=== PATIENT | male | born 1980 | race Caucasian/White ===

== ENCOUNTER 2017-05-31 14:25 | Emergency (ER) | payer MEDICAID ==
[2017-05-31 15:15] LABS: % IMMATURE GRANULYOCYTES 0.2 % (0.0-1.1); ABSOLUTE IMMATURE GRANULOCYTES 0.02 10^3/uL (0.00-0.10); ADD DIFF? NO; ADD MORPH? NO; ADD SCAN? NO; ATYPICAL LYMPHOCYTE FLAG 0 (0-99); FRAGMENT RBC FLAG 0 (0-99); HEMATOCRIT 38.4 % (40.0-51.0); HEMOGLOBIN 13.9 g/dL (13.7-17.5); LEFT SHIFT FLG 0 (0-99); LIPEMIA HEMOLYSIS FLAG 90 (0-99); MEAN CELL HEMOGLOBIN 31.6 pg (27.9-34.1); MEAN CELL HEMOGLOBIN CONCENTR. 36.2 g/dL (32.4-36.7); MEAN CELL VOLUME 87.3 fL (81.5-99.8); MEAN PLATELET VOLUME 11.3 fL (8.7-11.7); PLATELET CLUMPS FLAG 0 (0-99); PLATELET COUNT 200 10^3/uL (150-400); RED CELL DISTRIBUTION WIDTH 12.2 % (11.5-15.2)
[2017-05-31 15:32] LABS: ALANINE AMINOTRANSFERASE 40 IU/L (21-72); ALKALINE PHOSPHATASE 65 IU/L (38-126); ANION GAP 9 mEq/L (8-16); ASPARTATE AMINOTRANSFERASE 52 IU/L (17-59); CALCIUM 9.5 mg/dL (8.5-10.4); CARBON DIOXIDE 26 mEq/l (22-31); CHLORIDE 107 mEq/L (97-110); CREATININE 0.9 mg/dL (0.7-1.3); ETHANOL SERUM < 10 mg/dL (0-10); GLOMERULAR FILTRATION RATE > 60; GLUCOSE 90 mg/dL (70-100); POTASSIUM 3.2 mEq/L (3.5-5.2); SODIUM 142 mEq/L (134-144); TOTAL PROTEIN 6.8 g/dL (6.3-8.2)
--- NOTE | 2017-05-31 15:37 | EDPHY ---
H & P Stated Complaint: M1 hold by [facility] - Medical/Surgical History Hx Asthma: No Hx Chronic Respiratory Disease: No Hx Diabetes: No Hx Cardiac Disease: No Hx Renal Disease: No Hx Cirrhosis: No Hx Alcoholism: No Hx HIV/AIDS: No Hx Splenectomy or Spleen Trauma: No Other PMH: bipolar/depression - Social History Smoking Status: Current every day smoker Time Seen by Provider: 05/31/17 14:56 HPI/ROS: Chief complaint: Mental health hold History of present illness: This is a 36-year-old male brought to the emergency department by the police on a mental health hold. Apparently patient was found wandering the street talking incoherently. He was placed on a mental health hold as it was thought he was gravely disabled. On my evaluation he states he feels fine. He denies suicidal or homicidal ideation. He denies illness or injury. However, on further discussion with him he does appear to be talking strangely stating evil is coming from his veins and body. Review of systems: 10 point review of systems was obtained and other than described above was negative (Pedrito Alanis) - Physical Exam Exam: General Appearance: Alert, nontoxic. Eyes: Pupils equal and round no pallor or injection. ENT, Mouth: Mucous membranes moist. Respiratory: There are no retractions, lungs are clear to auscultation. Cardiovascular: Regular rate and rhythm. Gastrointestinal: Abdomen is soft and non tender, no masses, bowel sounds normal. Neurological: Alert. Strength and sensation intact and symmetrical. Skin: Warm and dry, no rashes. Musculoskeletal: Neck is supple non tender. Extremities are symmetrical, full range of motion. Psychiatric: Patient is oriented X 3, there is no agitation. (Pedrito Alanis) Constitutional: Initial Vital Signs Temperature (C) 37.2 C 05/31/17 14:41 Heart Rate 110 H 05/31/17 14:41 Respiratory Rate 18 05/31/17 14:41 Blood Pressure 142/96 H 05/31/17 14:41 O2 Sat (%) 95 05/31/17 14:41 O2 Delivery Mode Room Air Allergies/Adverse Reactions: No Known Allergies Allergy (Verified 05/31/17 14:40) Home Medications: Medication Instructions Recorded Hydrocodone Bit/Acetaminophen 1 tab PO Q4-6PRN PRN #20 tab 03/22/11 [LORTAB5/325] NO HOME MEDICATIONS 03/22/11 Depakote 05/31/17 Seroquel 05/31/17 Medical Decision Making ED Course/Re-evaluation: Patient seen under the supervision of my secondary supervising physician Dr. Ana Nash. Patient presents to the emergency department on a mental health hold. He is medically evaluated and cleared for psychiatric evaluation. This is pending at time of dictation. He is turned over to Dr. Colton Metcalf at end of shift. (Pedrito Alanis) Differential Diagnosis: Included but not limited to polysubstance abuse, depression, bipolar, schizophrenia (Pedrito Alanis) Other Provider: Assumed care of the patient at 5:00 p.m. pending psychiatric disposition. Patient has remained stable on my shift. The patient will be turned over to Dr. Gonsales at 11:00 p.m. pending psychiatric evaluation. (Colton Metcalf) 6:30 a.m.- The patient is stable. He is currently being evaluated by the mental health team. I anticipate the case will be signed out at 7:00 a.m. to the oncoming provider Dr. Romero pending final mental health evaluation. (Angela Gonsales) - Data Points Laboratory Results: Laboratory Results 05/31/17 15:02 05/31/17 15:02 Medications Given: Discontinued Medications Nicotine (Nicoderm Cq) 21 mg TD EDNOW ONE Stop: 06/01/17 00:40 Last Admin: 06/01/17 00:45 Dose: 21 mg Departure - Departure Disposition: Home, Routine, Self-Care Clinical Impression: Acute psychosis Condition: Good Instructions: Additional Information Additional Instructions: Follow-up with mental health resources provided to you. Follow-up with your mental health provider as directed. Return to the ED for thoughts of self-harm , racing thoughts or other concerns. Referrals: NONE *PRIMARY CARE P,. [Primary Care Provider] - As per Instructions
[2017-06-01] MEDS ORDERED: NICOTINE 21 MG/24 HR PATCH TD ONE ×2 (00:39→00:40)
[2017-06-01 07:54] VITALS: BP 149/98; PULSE 78; RESP 18; TEMP 98.4; O2SAT 97
== END 2017-06-01 09:46 | disposition home or self-care (01) ==
DX: F29 Unspecified psychosis not due to a substance or known physiological condition (principal); F17.200 Nicotine dependence, unspecified, uncomplicated
CPT/HCPCS: 80305; G0480

== ENCOUNTER 2017-07-15 19:54 | Emergency (ER) | payer MEDICAID ==
[2017-07-15] MEDS ORDERED: diphenhydrAMINE 25 MG CAP PO ONE (19:57)
[2017-07-15 20:00] VITALS: BP 145/98; PULSE 100; RESP 18; TEMP 98.1; O2SAT 96
--- NOTE | 2017-07-15 20:01 | EDPHY ---
H & P HPI/ROS: HPI CHIEF COMPLAINT: Reaction to Risperdal. HISTORY OF PRESENT ILLNESS: This patient 36-year-old male, presents emergency room by EMS for possible reaction to Risperdal. Patient reports he took a dose of Risperdal yesterday by accident. He has bipolar disorder. He is allergic to antipsychotics. He states that he feels that his tongue is stuck in a position. On exam however he is mentating appropriately oropharynx is unremarkable. Able to move his tongue. Speaking coherently. Admits to alcohol yesterday. No alcohol this evening. He is requesting Benadryl. Refusing IV. Denies any other complaints. Denies chest pain shortness of breath fever abdominal pain nausea vomiting. Patient is specifically requesting 50 mg p.o. Benadryl. Past Medical History: Bipolar disorder Past Surgical History: No recent surgery Social History: Homeless, smokes tobacco, occasional alcohol use, denies other illicit drugs. Allergic to antipsychotics. Family History: Noncontributory ROS REVIEW OF SYSTEMS: A comprehensive 10 point review of systems is otherwise negative aside from elements mentioned in the history of present illness. Exam Constitutional appears well nontoxic no acute distress, triage nursing summary reviewed, vital signs reviewed, awake/alert. Eyes normal conjunctivae and sclera, EOMI, PERRLA. HENT oropharynx is normal. Tongue full range of motion. No swelling. Uvula midline. Speaking clearly, no drooling, no stridor, normal inspection, atraumatic, moist mucus membranes, no epistaxis, neck supple/ no meningismus, no raccoon eyes. Respiratory clear to auscultation bilaterally, normal breath sounds, no respiratory distress, no wheezing. Cardiovascular rate normal, regular rhythm, no murmur, no edema, distal pulses normal. Gastrointestinal soft, non-tender, no rebound, no guarding, normal bowel sounds, no distension, no pulsatile mass. Genitourinary no CVA tenderness. Musculoskeletal no midline vertebral tenderness, full range of motion, no calf swelling, no tenderness of extremities, no meningismus, good pulses, neurovascularly intact. Skin pink, warm, & dry, no rash, skin atraumatic. Neurologic awake, alert and oriented x 3, AAOx3, moves all 4 extremities equally, motor intact, sensory intact, CN II-XII intact, normal cerebellar, normal vision, normal speech. Psychiatric normal mood/affect. Heme/Lymph/Immune no lymphadenopathy. Differential Diagnosis: Includes but is not limited to in a particular order, allergic reaction to Risperdal . Dystonic reaction Medical Decision Making: Plan for this patient 50 mg p.o. Benadryl. And re- evaluate. Re-evaluation: Re-eval. Resting no complaints. No significant signs of reaction. No dystonia. No tongue swelling. Source: Patient, EMS - Medical/Surgical History Hx Asthma: No Hx Chronic Respiratory Disease: No Hx Diabetes: No Hx Cardiac Disease: No Hx Renal Disease: No Hx Cirrhosis: No Hx Alcoholism: No Hx HIV/AIDS: No Hx Splenectomy or Spleen Trauma: No Other PMH: bipolar/depression - Social History Smoking Status: Current every day smoker Constitutional: Initial Vital Signs Temperature (C) 36.7 C 07/15/17 19:58 Heart Rate 100 07/15/17 19:58 Respiratory Rate 18 07/15/17 19:58 Blood Pressure 145/98 H 07/15/17 19:58 O2 Sat (%) 96 07/15/17 19:58 O2 Delivery Mode Room Air Allergies/Adverse Reactions: ANTIPSYCHOTICS Allergy (Uncoded 07/15/17 20:00) Home Medications: Medication Instructions Recorded Hydrocodone Bit/Acetaminophen 1 tab PO Q4-6PRN PRN #20 tab 03/22/11 [LORTAB5/325] NO HOME MEDICATIONS 03/22/11 Depakote 05/31/17 Seroquel 05/31/17 Medical Decision Making - Data Points Medications Given: Discontinued Medications Diphenhydramine HCl (Benadryl) 50 mg PO EDNOW ONE Stop: 07/15/17 19:58 Last Admin: 07/15/17 20:03 Dose: 50 mg Departure - Departure Disposition: Home, Routine, Self-Care Clinical Impression: Medication reaction Qualifiers: Encounter type: initial encounter Qualified Code(s): T88.7XXA - Unspecified adverse effect of drug or medicament, initial encounter Condition: Good Instructions: How to Stop Smoking (ED), Tremors (ED) Additional Instructions: 1. Please stop smoking 2. Stay well-hydrated drink lots of fluids. 3. Return emergency room if there is worsening symptoms questions or concerns. Referrals: Patient,NotPresent [Primary Care Provider] - As per Instructions
== END 2017-07-15 20:20 | disposition home or self-care (01) ==
LOC: EDUNIT#
DX: K14.8 Other diseases of tongue (principal); T43.595A Adverse effect of other antipsychotics and neuroleptics, initial encounter; F17.200 Nicotine dependence, unspecified, uncomplicated